=== PATIENT | male | born 1985 | race Caucasian/White ===

== ENCOUNTER 2024-01-18 14:10 | Emergency (ER) | payer BC, SELFPAY ==
[2024-01-18 14:12] VITALS: BP 143/89
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
== END 2024-01-18 15:33 | disposition home or self-care (01) ==
LOC: EMR 14:10
PROVIDERS: EMERGENCY PHYSICIAN Emergency Medicine; FAMILY PHYSICIAN Family Medicine
DX: S62.395A Other fracture of fourth metacarpal bone, left hand, initial encounter for closed fracture (principal); V19.88XA Pedal cyclist (driver) (passenger) injured in other specified transport accidents, initial encounter
CPT/HCPCS: 29125; 99283; 73130

== ENCOUNTER 2024-05-31 06:16 | Day surgery (SDC) | payer BC, SELFPAY | END 2024-05-31 14:46 | disposition home or self-care (01) | LOC: GI 06:16 | PROVIDERS: ATTENDING PHYSICIAN Internal Medicine Gastroenterology | DX: Z12.11 Encounter for screening for malignant neoplasm of colon (principal); K57.30 Diverticulosis of large intestine without perforation or abscess without bleeding; K64.8 Other hemorrhoids; K51.00 Ulcerative (chronic) pancolitis without complications | CPT/HCPCS: 45380; 88305 ==